=== PATIENT | female | born 1980 | race Caucasian/White ===

== ENCOUNTER 2016-06-18 20:52 | Emergency (ER) | payer SELFPAY ==
--- NOTE | 2016-06-20 14:00 | ER ---
ADMIT: 06/18/2016 RM/LOC: ER [facility] MR#: [id number] [address] [id number] ERIN WATKINS [address] [facility] [place] [address] Emergency Room Report SEX: F AGE: 36 : 1980 DATE: 06/18/2016 ADDENDUM: See T-sheet for complete H and P. A 36-year-old female, who comes in complaining of pain in the center of her chest. It has been there for about 5 hours. States it is kind of a sharp stabbing pain in the center of her chest. She denies any shortness of breath or difficulty breathing but does state that her pain is slightly worse with deep inspirations. Her heart and lung exam are completely unremarkable. She has no cardiac history. No strong family history of cardiac disease. She has no personal history of DVT or PE. The patient does take oral contraceptive pills but does not smoke. She was low probability for DVT and PE, so I did get a D-dimer. Results of D-dimer were normal. She did receive Toradol in the Emergency Department. She did improve while she was here but was not completely symptom-free at the time of discharge. I do believe that the patient is safe to be discharged home at this time as her vital signs are unremarkable. She is discharged home with a diagnosis of atypical chest pain and anxiety, to follow up with her primary care physician if not improving. Return to the ER for any worsening symptoms. Nigel Osman MD/ juanpablo JOB #: [id number] CC: Leoncio Raymond MD, Attending Physician Eddie Arredondo MD, Family Physician
== END 2016-06-18 22:55 | disposition home or self-care (01) ==
LOC: ER 20:52
DX: R07.89 Other chest pain (principal); F41.9 Anxiety disorder, unspecified; Z88.1 Allergy status to other antibiotic agents; Z79.899 Other long term (current) drug therapy